=== PATIENT | male | born 1955 | race African-American/Black ===

== ENCOUNTER 2018-09-23 08:09 | Inpatient (IN) | payer OTHER | END 2018-09-28 14:55 | disposition home or self-care (01) | LOC: YASAS 08:09 → Y3N 10:25 ==

== ENCOUNTER 2021-09-21 14:28 | Inpatient (IN) | payer OTHER ==
[2021-09-21 15:45] VITALS: BMI 29.5
[2021-09-21] MEDS ORDERED: BENZOCAINE/MENTHOL (CHLORASEPTIC ) LOZENGE MM PRN (19:11)
[2021-09-21] MEDS ORDERED: IBUPROFEN 400 MG TABLET (FP) PO PRN (19:11)
[2021-09-21] MEDS ORDERED: BISMUTH SUBSALICYLATE 524 MG/30 ML PO PRN (19:11)
[2021-09-21] MEDS ORDERED: chlordiazePOXIDE HCL 25 MG CAPSULE PO PRN (19:11)
[2021-09-21] MEDS ORDERED: MAGNESIUM CITRATE 300 ML BOTTLE PO PRN (19:11)
[2021-09-21] MEDS ORDERED: DICYCLOMINE HCL 10 MG CAPSULE PO PRN (19:11)
[2021-09-21] MEDS ORDERED: ACETAMINOPHEN 325 MG TABLET (FP) PO PRN ×2 (19:11)
[2021-09-21] MEDS ORDERED: MAGNESIUM HYDROX 2400MG/30ML ORAL SUSPENSION 30 ML CUP PO PRN (19:11)
[2021-09-21] MEDS ORDERED: ONDANSETRON *ODT* 4 MG TABLET SL PRN (19:11)
[2021-09-21] MEDS ORDERED: LOPERAMIDE HCL 2 MG CAPSULE PO PRN (19:11)
[2021-09-21] MEDS ORDERED: METHOCARBAMOL 500 MG TABLET PO PRN (19:11)
[2021-09-21] MEDS ORDERED: MAG HYDROX/AL HYDROX/SIMETH 30 ML UNIT-DOSE CUP PO PRN (19:11)
[2021-09-21] MEDS ORDERED: IBUPROFEN 600 MG TABLET (FP) PO PRN (19:11)
[2021-09-21] MEDS: hydrOXYzine PAMOATE 25 MG CAPSULE (FP) PO SCH (22:17)
[2021-09-21] MEDS: MELATONIN 5 MG TABLETS PO SCH (22:17)
[2021-09-21] MEDS: THIAMINE HCL 100 MG TABLET (FP) PO SCH (22:17)
[2021-09-21] MEDS: chlordiazePOXIDE HCL 25 MG CAPSULE PO SCH (22:17)
[2021-09-22] MEDS: chlordiazePOXIDE HCL 25 MG CAPSULE PO SCH ×4 (05:18→21:59)
[2021-09-22] MEDS: hydrOXYzine PAMOATE 25 MG CAPSULE (FP) PO SCH ×5 (05:18→21:59)
[2021-09-22 08:58] LABS: HEMATOCRIT 39.1 % (35.4-49); HEMOGLOBIN 13.1 GM/dL (11.7-16.9); MCH 30.3 pg (25.7-33.7); MCHC 33.4 g/dl (32.0-35.9); MEAN CELL VOLUME 90.9 fl (80-96); MEAN PLT VOLUME 10.6 fl (7.5-11.1); PLATELET COUNT 207 10^3/uL (134-434); RBC 4.31 M/mm3 (4.00-5.60); RDW 14.3 % (11.9-15.9); WHITE BLOOD COUNT 7.8 K/mm3 (4.0-10.0)
[2021-09-22 09:04] LABS: ALBUMIN 3.5 g/dl (3.4-5.0); BLOOD UREA NITROGEN 12.3 mg/dL (7-18)
[2021-09-22 09:07] LABS: CREATININE 1.1 mg/dL (0.55-1.3)
[2021-09-22 09:09] LABS: BILIRUBIN,TOTAL 0.2 mg/dL (0.2-1); TOT PROT 6.6 g/dl (6.4-8.2)
[2021-09-22] MEDS: PRENATAL VITAMINS W/ FOLIC ACID TABLET (FP) PO SCH (10:00)
[2021-09-22] MEDS: NICOTINE 14 MG/24 HOURS TOPICAL PATCH TD SCH (10:02)
[2021-09-22] MEDS ORDERED: ASPIRIN COATED 81 MG TABLET.EC PO SCH (11:30)
[2021-09-22] MEDS: ATORVASTATIN CA 40 MG TABLET (FP) PO SCH (12:27)
[2021-09-22] MEDS: LOSARTAN POTASSIUM 50 MG TABLET PO SCH (12:27)
[2021-09-22] MEDS: APIXABAN 5 MG TABLET PO SCH ×2 (12:27→21:59)
[2021-09-22] MEDS: CLOPIDOGREL BISULFATE 75 MG TABLET (FP) PO SCH (12:27)
[2021-09-22] MEDS: amLODIPine BESYLATE 10 MG TABLET (FP) PO SCH (12:27)
[2021-09-22] MEDS: metoPROLOL SUCCINATE 25 MG TAB.SR.24H (FP) PO SCH (14:20)
[2021-09-22] MEDS: prednisoLONE ACETATE 1% OPHTH SUSP 5 ML BOTTLE OU SCH ×3 (14:21→20:34)
[2021-09-22] MEDS: MELATONIN 5 MG TABLETS PO SCH (21:59)
[2021-09-22] MEDS: THIAMINE HCL 100 MG TABLET (FP) PO SCH (21:59)
[2021-09-23] MEDS: hydrOXYzine PAMOATE 25 MG CAPSULE (FP) PO SCH ×5 (05:30→23:17)
[2021-09-23] MEDS: chlordiazePOXIDE HCL 25 MG CAPSULE PO SCH ×4 (05:31→23:16)
[2021-09-23] MEDS: LOSARTAN POTASSIUM 50 MG TABLET PO SCH (10:16)
[2021-09-23] MEDS: ATORVASTATIN CA 40 MG TABLET (FP) PO SCH (10:16)
[2021-09-23] MEDS: PRENATAL VITAMINS W/ FOLIC ACID TABLET (FP) PO SCH (10:16)
[2021-09-23] MEDS: CLOPIDOGREL BISULFATE 75 MG TABLET (FP) PO SCH (10:16)
[2021-09-23] MEDS: metoPROLOL SUCCINATE 25 MG TAB.SR.24H (FP) PO SCH (10:16)
[2021-09-23] MEDS: amLODIPine BESYLATE 10 MG TABLET (FP) PO SCH (10:16)
[2021-09-23] MEDS: APIXABAN 5 MG TABLET PO SCH ×2 (10:16→23:15)
[2021-09-23] MEDS: prednisoLONE ACETATE 1% OPHTH SUSP 5 ML BOTTLE OU SCH ×4 (10:17→23:19)
[2021-09-23] MEDS: NICOTINE 14 MG/24 HOURS TOPICAL PATCH TD SCH (10:21)
[2021-09-23] MEDS: THIAMINE HCL 100 MG TABLET (FP) PO SCH (23:17)
[2021-09-23] MEDS: MELATONIN 5 MG TABLETS PO SCH (23:19)
[2021-09-24] MEDS ORDERED: chlordiazePOXIDE HCL 10 MG CAPSULE PO PRN
[2021-09-24] MEDS: hydrOXYzine PAMOATE 25 MG CAPSULE (FP) PO SCH ×5 (05:41→22:03)
[2021-09-24] MEDS: chlordiazePOXIDE HCL 10 MG CAPSULE PO SCH ×4 (05:41→22:03)
[2021-09-24] MEDS: prednisoLONE ACETATE 1% OPHTH SUSP 5 ML BOTTLE OU SCH ×4 (10:05→22:07)
[2021-09-24] MEDS: LOSARTAN POTASSIUM 50 MG TABLET PO SCH (10:24)
[2021-09-24] MEDS: ATORVASTATIN CA 40 MG TABLET (FP) PO SCH (10:24)
[2021-09-24] MEDS: amLODIPine BESYLATE 10 MG TABLET (FP) PO SCH (10:24)
[2021-09-24] MEDS: APIXABAN 5 MG TABLET PO SCH ×4 (10:24→23:26)
[2021-09-24] MEDS: CLOPIDOGREL BISULFATE 75 MG TABLET (FP) PO SCH (10:24)
[2021-09-24] MEDS: metoPROLOL SUCCINATE 25 MG TAB.SR.24H (FP) PO SCH (10:24)
[2021-09-24] MEDS: PRENATAL VITAMINS W/ FOLIC ACID TABLET (FP) PO SCH (10:24)
[2021-09-24] MEDS: NICOTINE 14 MG/24 HOURS TOPICAL PATCH TD SCH (10:41)
[2021-09-24] MEDS: MELATONIN 5 MG TABLETS PO SCH (22:03)
[2021-09-24] MEDS: THIAMINE HCL 100 MG TABLET (FP) PO SCH (22:03)
[2021-09-25] MEDS: hydrOXYzine PAMOATE 25 MG CAPSULE (FP) PO SCH ×5 (05:22→22:04)
[2021-09-25] MEDS: chlordiazePOXIDE HCL 10 MG CAPSULE PO SCH ×2 (05:23→17:22)
[2021-09-25] MEDS: PRENATAL VITAMINS W/ FOLIC ACID TABLET (FP) PO SCH (10:23)
[2021-09-25] MEDS: prednisoLONE ACETATE 1% OPHTH SUSP 5 ML BOTTLE OU SCH ×4 (10:23→22:05)
[2021-09-25] MEDS: APIXABAN 5 MG TABLET PO SCH ×2 (10:24→22:04)
[2021-09-25] MEDS: amLODIPine BESYLATE 10 MG TABLET (FP) PO SCH (10:24)
[2021-09-25] MEDS: ATORVASTATIN CA 40 MG TABLET (FP) PO SCH (10:24)
[2021-09-25] MEDS: NICOTINE 14 MG/24 HOURS TOPICAL PATCH TD SCH (10:24)
[2021-09-25] MEDS: LOSARTAN POTASSIUM 50 MG TABLET PO SCH (10:24)
[2021-09-25] MEDS: metoPROLOL SUCCINATE 25 MG TAB.SR.24H (FP) PO SCH (10:24)
[2021-09-25] MEDS: CLOPIDOGREL BISULFATE 75 MG TABLET (FP) PO SCH (10:24)
[2021-09-25] MEDS: MELATONIN 5 MG TABLETS PO SCH (22:04)
[2021-09-25] MEDS: THIAMINE HCL 100 MG TABLET (FP) PO SCH (22:04)
[2021-09-26] MEDS ORDERED: chlordiazePOXIDE HCL 10 MG CAPSULE PO ONE (05:00)
[2021-09-26] MEDS: hydrOXYzine PAMOATE 25 MG CAPSULE (FP) PO SCH ×2 (05:22→09:02)
[2021-09-26 06:50] VITALS: RESP 18
[2021-09-26] MEDS: APIXABAN 5 MG TABLET PO SCH (08:59)
[2021-09-26] MEDS: metoPROLOL SUCCINATE 25 MG TAB.SR.24H (FP) PO SCH (08:59)
[2021-09-26] MEDS: CLOPIDOGREL BISULFATE 75 MG TABLET (FP) PO SCH (08:59)
[2021-09-26] MEDS: LOSARTAN POTASSIUM 50 MG TABLET PO SCH (08:59)
[2021-09-26] MEDS: ATORVASTATIN CA 40 MG TABLET (FP) PO SCH (08:59)
[2021-09-26] MEDS: NICOTINE 14 MG/24 HOURS TOPICAL PATCH TD SCH (08:59)
[2021-09-26] MEDS: amLODIPine BESYLATE 10 MG TABLET (FP) PO SCH (08:59)
[2021-09-26] MEDS: prednisoLONE ACETATE 1% OPHTH SUSP 5 ML BOTTLE OU SCH (09:00)
[2021-09-26] MEDS: PRENATAL VITAMINS W/ FOLIC ACID TABLET (FP) PO SCH (09:13)
[2021-09-26 09:30] VITALS: BP 144/83; PULSE 57; TEMP 97.7
== END 2021-09-26 09:41 | disposition home or self-care (01) | DRG 897 ==
LOC: YASAS 14:28 → Y6N 18:58
PROVIDERS: ADMIT Allergy & Immunology; ATTEND Surgery
PROC: HZ2ZZZZ Detoxification Services for Substance Abuse Treatment (ICD-10-PCS; principal; 2021-09-21)
DX: F10.230 Alcohol dependence with withdrawal, uncomplicated (principal); F17.210 Nicotine dependence, cigarettes, uncomplicated; F20.9 Schizophrenia, unspecified; E78.5 Hyperlipidemia, unspecified; I10 Essential (primary) hypertension; I25.2 Old myocardial infarction; Z95.5 Presence of coronary angioplasty implant and graft; Z95.0 Presence of cardiac pacemaker; R07.9 Chest pain, unspecified; R73.9 Hyperglycemia, unspecified; Z96.652 Presence of left artificial knee joint; Z86.19 Personal history of other infectious and parasitic diseases; Z99.89 Dependence on other enabling machines and devices; Z79.01 Long term (current) use of anticoagulants; Z28.310 Unvaccinated for COVID-19
CPT/HCPCS: 36415; 80053; 83036; 85027; 86593; 86780; 93005; 93010; C9803-CS; U0003; U0005

== ENCOUNTER 2021-09-23 19:55 | Emergency (ER) | payer OTHER ==
[2021-09-23 20:17] VITALS: BMI 29.5
[2021-09-23 21:41] LABS: BASO % 0.9 % (0-2.0); EOS % 2.7 % (0-4.5); HEMATOCRIT 40.9 % (35.4-49); HEMOGLOBIN 13.9 GM/dL (11.7-16.9); LYMPH % 31.3 % (8-40); MCH 30.5 pg (25.7-33.7); MEAN CELL VOLUME 89.6 fl (80-96); MEAN PLT VOLUME 9.8 fl (7.5-11.1); MONO % 7.1 % (3.8-10.2); PLATELET COUNT 200 10^3/uL (134-434); RBC 4.57 M/mm3 (4.00-5.60); RDW 14.4 % (11.9-15.9); WHITE BLOOD COUNT 6.2 K/mm3 (4.0-10.0)
[2021-09-23 22:06] LABS: CALCIUM 9.2 mg/dL (8.5-10.1)
[2021-09-23 22:07] LABS: ALBUMIN 3.8 g/dl (3.4-5.0); BLOOD UREA NITROGEN 13.8 mg/dL (7-18)
[2021-09-23 22:10] LABS: CREATININE 1.1 mg/dL (0.55-1.3)
[2021-09-23 22:12] LABS: BILIRUBIN,TOTAL 0.3 mg/dL (0.2-1); TOT PROT 7.5 g/dl (6.4-8.2)
[2021-09-24 03:52] VITALS: TEMP 97.9
[2021-09-24 03:56] VITALS: BP 148/82; PULSE 72; RESP 18
== END 2021-09-24 03:56 ==
LOC: JER 19:55
DX: R06.02 Shortness of breath (principal)
CPT/HCPCS: 36415; 71046-TC-FY; 80053; 84484; 85025; 93005; 93010; 99285-25